=== PATIENT | female | born 1955 | race Caucasian/White ===

== ENCOUNTER 2016-12-04 21:00 | Emergency (ER) | payer MEDICAID, OTHER ==
[~2016-12-04] VITALS: Ht 162.6 cm; Wt 92.0 kg
[~2016-12-04 21:00] MED LIST: ADVA500A INH; ALBU0.08 NEB; ASPI-110 PO; DOXE150C7 PO; FLUTI110I INH; LEVO-168 PO; LORA10TA PO; METF500T PO; PRED-503 PO; SENN8.6C PO; SPIRCAP INH; VENTAER INH
[2016-12-04 21:02] VITALS: BP 161/93; PULSE 99; RESP 18; TEMP 98.4; O2SAT 96
[2016-12-04] MEDS ORDERED: GABA100C4 PO (21:38)
[2016-12-04] MEDS ORDERED: TYLETAB34 PO (21:41)
[2016-12-04] MEDS ORDERED: KETOROLAC TROMETHAMINE 60 MG/2 ML (IM) VIAL IM ONE (21:45)
[2016-12-04] MEDS ORDERED: ACETAMINOPHEN/HYDROcodone 325 MG/5 MG TAB PO ONE (21:45)
[2016-12-04] MEDS ORDERED: ONDANSETRON ODT 4 MG TAB PO ONE (21:45)
--- NOTE | 2016-12-04 21:47 | PD ---
HPI Chief Complaint: Pain: Acute or Chronic Time Seen by Provider: 21:35 Travel History International Travel<30 days: No Contact w/Intl Traveler<30days: No Traveled to known affect area: No History of Present Illness HPI 61-year-old female to history of rheumatoid arthritis, COPD, asthma, diabetes, hypertension, presents for evaluation of right wrist pain. Symptoms started yesterday. She describes it as an aching pain which is constant, worse with movement, associated limited range of motion. She denies any trauma. She reports that it feels like her typical rheumatoid arthritis pain. She reports that she is currently only prescribed gabapentin for rheumatoid arthritis and this does help some but symptoms have persisted which prompted evaluation today for pain control. She has no other complaints at this time. PFSH Past Medical History Asthma: Yes Autoimmune Disease: Yes (RA) Cardiovascular Problems: Yes (HTN) COPD: Yes Diabetes: Yes Patient Takes Glucophage: No Hypertension: Yes Respiratory: Yes (asthma/copd) Thyroid Disease: Yes Tetanus Vaccination: Unknown Influenza Vaccination: Yes Past Surgical History Section: Yes Gynecologic Surgery: Yes Hysterectomy: Yes Social History Alcohol Use: No Tobacco Use: No Substance Use: No Allergies-Medications (Allergen,Severity, Reaction): Coded Allergies: Motrin (Verified Allergy, Unknown, 08/01/16) Reported Meds & Prescriptions Reported Meds & Active Scripts Active Tylenol-Codeine #3 (Acetaminophen-Codeine) 300-30 mg Tab 1-2 Tab PO Q6H PRN Deltasone (Prednisone) 20 Mg Tab 40 Mg PO DAILY 10 Days Albuterol Neb (Albuterol Sulfate) 2.5 Mg/3 Ml Neb 2.5 Mg NEB TID NEB PRN Reported Gabapentin 100 Mg Cap 100 Mg PO TID Spiriva Handihaler (Tiotropium Inh) 18 Mcg Cap 18 Mcg INH DAILY 1 capsule = 18 mcg Senna (Sennosides) 8.6 Mg Cap 8.6 Mg PO HS Metformin (Metformin HCl) 500 Mg Tab 500 Mg PO BIDPC With meals Loratadine 10 Mg Tab 10 Mg PO DAILY Levothyroxine (Levothyroxine Sodium) 112 Mcg Tab 112 Mcg PO DAILY Flovent Hfa 12 GM Inh (Fluticasone Propionate) 110 Mcg/Act Inh 2 Puff INH BID Doxepin (Doxepin HCl) 150 Mg Cap 150 Mg PO HS Aspirin 81 (Aspirin) 81 Mg Tabdr 81 Mg PO DAILY Ventolin Hfa 18 GM Inh (Albuterol Sulfate) 90 Mcg/Act Aer 1 Puff INH Q4H PRN Advair Diskus Inh (Fluticasone-Salmeterol Inh) 500-50 Mcg/Blist Aer 1 Puff INH BID Rinse mouth after use. Review of Systems General / Constitutional: No: Fever, Chills Musculoskeletal: Positive: Limited ROM, Pain Skin: Positive Other (denies open wounds) Physical Exam Narrative GENERAL: Well-developed well-nourished female in no acute distress SKIN: Warm and dry. No bruising or soft tissue swelling CARDIOVASCULAR: Regular rate and rhythm. No murmur appreciated. RESPIRATORY: No accessory muscle use. Clear to auscultation. Breath sounds equal bilaterally. Extremities: The patient is holding her right wrist primarily and passive flexion. She is able to extend it with pain. There is generalized tenderness to palpation to the right wrist joint. There is no effusion. No bony deformity. Capillary refill less than 2 seconds all digits right hand. 2+ radial pulse. Data Data Last Documented VS Vital Signs Date Time Temp Pulse Resp B/P Pulse Ox O2 Delivery O2 Flow Rate FiO2 12/04/16 21:02 98.4 99 18 161/93 96 Room Air Orders Ketorolac Inj (Toradol Inj) (12/04/16 21:45) Acetamin-Hydrocod 325-5 Mg ([place] 5-325 (12/04/16 21:45) Ondansetron Odt (Zofran Odt) (12/04/16 21:45) Splint Or Brace Apply/Monitor (12/04/16 21:40) MDM Medical Decision Making Medical Screen Exam Complete: Yes Emergency Medical Condition: Yes Medical Record Reviewed: Yes Differential Diagnosis Rheumatoid arthritis, carpal tunnel syndrome, tendinitis, fracture Narrative Course 61-year-old female with history of rheumatoid arthritis presents with right wrist pain since yesterday which is typical of her rheumatoid arthritis flareups. The patient has listed an adverse reaction NSAIDs (gastritis symptoms ). She also has a history of diabetes and this seems to be poorly controlled based on conversation with her. She does not check her blood sugar at all. I don't feel Comfortable prescribing her steroids in light of this. Plan then would be to have the patient follow-up with her primary care physician in the next few days. She'll be given a dose of Toradol as well as Lortab. Discharge with a short course of Tylenol with codeine as well as a Velcro wrist splint. She is stable for discharge. Diagnosis Primary Impression: Right wrist pain Additional Impression: Rheumatoid arthritis flare Additional Instructions: Medication as needed. Do not drive or drink alcohol when taking this medication. Velcro wrist splint as needed. Monitor blood sugar on a regular basis and keep a journal of these readings. Follow-up with your primary care physician in the next few days to discuss your diabetes management. Return for any emergent medical conditions. Med/Other Pt SpecificInfo: Prescription(s) given, Orthopedic Instructions Scripts Acetaminophen-Codeine (Tylenol-Codeine #3)300-30 mg Tab1-2 Tab PO Q6H PRN (PAIN ) #20 TAB Ref 0 Prov:Eric Pineda MD 12/04/16 Disposition: 01 DISCHARGE HOME Condition: Stable Shaheed Chau Dec 04, 2016 21:46
== END 2016-12-04 21:58 | disposition home or self-care (01) ==
LOC: NEPK 21:00
DX: M06.831 Other specified rheumatoid arthritis, right wrist (principal); I10 Essential (primary) hypertension; J45.909 Unspecified asthma, uncomplicated; J44.9 Chronic obstructive pulmonary disease, unspecified; E11.9 Type 2 diabetes mellitus without complications; Z79.82 Long term (current) use of aspirin; Z79.4 Long term (current) use of insulin
CPT/HCPCS: 99283; L3908

== ENCOUNTER 2017-07-15 11:41 | Emergency (ER) | payer OTHER ==
[~2017-07-15] VITALS: Ht 160 cm; Wt 80.5 kg
[~2017-07-15 11:41] MED LIST changes: -ASPI-110 PO; +ASPI1TAB57 PO; +DOXE150C2 PO; -DOXE150C7 PO; +GABA100C4 PO; +TYLETAB34 PO
[2017-07-15 11:42] VITALS: BP 164/79; PULSE 115; RESP 20; TEMP 98.3; O2SAT 99
--- NOTE | 2017-07-15 12:16 | PD ---
HPI Chief Complaint: Depression Time Seen by Provider: 12:16 Travel History International Travel<30 days: No Contact w/Intl Traveler<30days: No Traveled to known affect area: No History of Present Illness HPI 61-year-old female presents to emergency department for evaluation of depression. Patient states they have been unable to find her daughter and she is very depressed. She denies suicidal homicidal ideations. She is requesting help to find her daughter. She would like to talk to somebody about this. Again she adamantly denies any suicidal homicidal ideations. Denies any recent illnesses, fever, chills. She has no other symptoms to report. PFSH Past Medical History Asthma: Yes Autoimmune Disease: Yes (RA) Cardiovascular Problems: Yes (HTN) COPD: Yes Diabetes: Yes Hypertension: Yes Respiratory: Yes (asthma/copd) Thyroid Disease: Yes Past Surgical History Section: Yes Gynecologic Surgery: Yes Hysterectomy: Yes Social History Alcohol Use: No Tobacco Use: No Substance Use: No Allergies-Medications (Allergen,Severity, Reaction): Coded Allergies: ibuprofen (Unverified Allergy, Unknown, 03/25/17) Reported Meds & Prescriptions Reported Meds & Active Scripts Active Tylenol-Codeine #3 (Acetaminophen-Codeine) 300-30 mg Tab 1-2 Tab PO Q6H PRN Deltasone (Prednisone) 20 Mg Tab 40 Mg PO DAILY 10 Days Albuterol Neb (Albuterol Sulfate) 2.5 Mg/3 Ml Neb 2.5 Mg NEB TID NEB PRN Reported Gabapentin 100 Mg Cap 100 Mg PO TID Spiriva Handihaler (Tiotropium Inh) 18 Mcg Cap 18 Mcg INH DAILY 1 capsule = 18 mcg Senna (Sennosides) 8.6 Mg Cap 8.6 Mg PO HS Metformin (Metformin HCl) 500 Mg Tab 500 Mg PO BIDPC With meals Loratadine 10 Mg Tab 10 Mg PO DAILY Levothyroxine (Levothyroxine Sodium) 112 Mcg Tab 112 Mcg PO DAILY Flovent Hfa 12 GM Inh (Fluticasone Propionate) 110 Mcg/Act Inh 2 Puff INH BID Doxepin (Doxepin HCl) 150 Mg Cap 150 Mg PO HS Aspirin 81 (Aspirin) 81 Mg Tabdr 81 Mg PO DAILY Ventolin Hfa 18 GM Inh (Albuterol Sulfate) 90 Mcg/Act Aer 1 Puff INH Q4H PRN Advair Diskus Inh (Fluticasone-Salmeterol Inh) 500-50 Mcg/Blist Aer 1 Puff INH BID Rinse mouth after use. Review of Systems Except as stated in HPI: all other systems reviewed are Neg Physical Exam Narrative GENERAL: Well-nourished, well-developed patient. SKIN: Focused skin assessment warm/dry. HEAD: Normocephalic. EYES: No scleral icterus. No injection or drainage. NECK: trachea midline. CARDIOVASCULAR: Regular rate RESPIRATORY: No accessory muscle use. GASTROINTESTINAL: Abdomen nondistended. MUSCULOSKELETAL: No cyanosis, or edema. BACK:without obvious deformity. Data Data Last Documented VS Vital Signs Date Time Temp Pulse Resp B/P (MAP) Pulse Ox O2 Delivery O2 Flow Rate FiO2 07/15/17 12:15 07/15/17 11:42 98.3 115 20 99 Room Air Orders Orders Complete Blood Count With Diff (07/15/17 11:50) Basic Metabolic Panel (Bmp) (07/15/17 11:50) Psych Screen (07/15/17 11:50) Drug Screen, Random Urine (07/15/17 11:50) Alcohol (Ethanol) (07/15/17 11:50) Labs Laboratory Tests Test 07/15/17 12:00 White Blood Count 4.3 TH/MM3 Red Blood Count 6.06 MIL/MM3 Hemoglobin 13.2 GM/DL Hematocrit 41.4 % Mean Corpuscular Volume 68.3 FL Mean Corpuscular Hemoglobin 21.8 PG Mean Corpuscular Hemoglobin Concent 32.0 % Red Cell Distribution Width 20.8 % Platelet Count 233 TH/MM3 Mean Platelet Volume 9.5 FL Neutrophils (%) (Auto) 54.6 % Lymphocytes (%) (Auto) 35.1 % Monocytes (%) (Auto) 7.8 % Eosinophils (%) (Auto) 1.6 % Basophils (%) (Auto) 0.9 % Neutrophils # (Auto) 2.4 TH/MM3 Lymphocytes # (Auto) 1.5 TH/MM3 Monocytes # (Auto) 0.3 TH/MM3 Eosinophils # (Auto) 0.1 TH/MM3 Basophils # (Auto) 0.0 TH/MM3 CBC Comment DIFF FINAL Differential Comment Blood Urea Nitrogen 9 MG/DL Creatinine 0.77 MG/DL Random Glucose 119 MG/DL Calcium Level 9.1 MG/DL Sodium Level 138 MEQ/L Potassium Level 3.8 MEQ/L Chloride Level 103 MEQ/L Carbon Dioxide Level 26.7 MEQ/L Anion Gap 8 MEQ/L Estimat Glomerular Filtration Rate 76 ML/MIN Ethyl Alcohol Level LESS THAN 3 MG/DL MDM Medical Decision Making Medical Screen Exam Complete: Yes Emergency Medical Condition: Yes Medical Record Reviewed: Yes Differential Diagnosis Depression versus adjustment reaction disorder versus major disorder versus personality disorder Narrative Course 61-year-old female presents to the emergency department for evaluation. Patient appears without distress. She is having worsening depression and would like to speak with somebody. Adamantly denies suicidal homicidal ideations. Workup is initiated in triage. AMA: The risks of leaving against medical advice without further evaluation treatment were discussed with the patient. These risks include cardiac dysfunction, cardiac dysrhythmia, possible heart attack, possible stroke or . The patient indicated understanding of these risks and appeared to have the capacity to make this decision. Diagnosis Primary Impression: Adjustment reaction Qualified Codes: F43.21 - Adjustment disorder with depressed mood Disposition: 07 AGAINST MEDICAL ADVICE Condition: Stable Heather Abraham Jul 15, 2017 12:16
[2017-07-15 12:30] LABS: AUTOMATED NEUTROPHIL # 2.4 TH/MM3 (1.8-7.7); BASOPHIL % 0.9 % (0.0-2.0); EOSINOPHIL # 0.1 TH/MM3 (0-0.4); EOSINOPHIL % 1.6 % (0.0-4.0); HEMATOCRIT 41.4 % (35.0-46.0); HEMO FLAGS DIFF FINAL; LYMPH % 35.1 % (9.0-44.0); LYMPHOCYTE # 1.5 TH/MM3 (1.0-4.8); MEAN CELL VOLUME 68.3 FL (80.0-100.0); MEAN CORPUSCULAR HEMOGLOBIN 21.8 PG (27.0-34.0); MONO % 7.8 % (0.0-8.0); NEUT % 54.6 % (16.0-70.0); PLATELET COUNT 233 TH/MM3 (150-450); RED BLOOD COUNT 6.06 MIL/MM3 (4.00-5.30); RED CELL DISTRIBUTION WIDTH 20.8 % (11.6-17.2); WHITE BLOOD COUNT 4.3 TH/MM3 (4.0-11.0)
[2017-07-15 12:43] LABS: ANION GAP 8 MEQ/L (5-15); BICARBONATE 26.7 MEQ/L (21.0-32.0); BLOOD UREA NITROGEN 9 MG/DL (7-18); CHLORIDE 103 MEQ/L (98-107); GLOMERULAR FILTRATION RATE 76 ML/MIN (>89); POTASSIUM 3.8 MEQ/L (3.5-5.1); SODIUM (NA) 138 MEQ/L (136-145)
[2017-07-15 12:45] LABS: ALCOHOL LESS THAN 3 MG/DL (0-5)
== END 2017-07-15 12:15 | disposition left against medical advice (07) ==
LOC: NED 11:41
DX: F43.21 Adjustment disorder with depressed mood (principal); J45.909 Unspecified asthma, uncomplicated; M06.9 Rheumatoid arthritis, unspecified; I10 Essential (primary) hypertension; J44.9 Chronic obstructive pulmonary disease, unspecified; E11.9 Type 2 diabetes mellitus without complications; Z79.82 Long term (current) use of aspirin; Z79.899 Other long term (current) drug therapy
CPT/HCPCS: 80048; 80307; 85025; 99283